=== PATIENT | female | born 1935 | race Caucasian/White ===

== ENCOUNTER 2017-12-23 15:34 | Emergency (ER) | END 2017-12-23 20:04 | disposition home or self-care (01) ==

== ENCOUNTER 2017-12-29 21:50 | Observation (INO) | END 2017-12-30 17:45 | disposition home or self-care (01) ==

== ENCOUNTER → 2018-01-18 | Outpatient (CLI) | END | disposition home or self-care (01) ==

== ENCOUNTER → 2018-02-03 | Outpatient (CLI) | END | disposition home or self-care (01) ==